=== PATIENT | male | born 2005 | race Caucasian/White ===

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

== ENCOUNTER → 2025-04-28 | Outpatient (REF) | payer BC, OTHER | LOC: M LAB REF 17:29 | PROVIDERS: ATTEND Physician Assistant | DX: B34.9 Viral infection, unspecified (principal) ==